=== PATIENT | female | born 1990 | race Caucasian/White ===

== ENCOUNTER 2021-11-23 22:07 | Emergency (ER) | payer BC ==
[~2021-11-23] VITALS: Ht 182.9 cm; Wt 63.6 kg
[2021-11-23] MEDS ORDERED: HYDR-3831 PO (22:15)
[2021-11-23] MEDS ORDERED: HYD50 PO (22:15)
[2021-11-23] MEDS ORDERED: ONDA-104 PO (22:15)
[2021-11-23] MEDS ORDERED: FLUO20CA36 PO (22:15)
[2021-11-23] MEDS ORDERED: ONDANSETRON HCL 4 MG/2 ML VIAL IVP ONE (22:45)
[2021-11-23] MEDS ORDERED: LORazepam 2 MG/ML VIAL IVP ONE (22:45)
[2021-11-23] MEDS ORDERED: SODIUM CHLORIDE 0.9% 1,000 ML IV ONE (23:00)
[2021-11-23 23:20] VITALS: BP 127/65
== END 2021-11-24 01:02 | disposition home or self-care (01) ==
LOC: EMS 22:09
DX: F41.9 Anxiety disorder, unspecified (principal); F12.90 Cannabis use, unspecified, uncomplicated; F17.210 Nicotine dependence, cigarettes, uncomplicated; Z88.5 Allergy status to narcotic agent; Z91.018 Allergy to other foods; Z79.899 Other long term (current) drug therapy
CPT/HCPCS: 96361; 96374; 96375; 99284; J2060; J2405